=== PATIENT | female | born 1945 ===

== ENCOUNTER 2025-04-30 10:06 | Day surgery (SDC) | payer OTHER, MEDICARE ==
[~2025-04-30] VITALS: Ht 160 cm; Wt 70.0 kg
[2025-04-30] MEDS ORDERED: CeFAZolin Sodium 2,000 MG VIAL ONE (10:32)
[2025-04-30] MEDS ORDERED: Acetaminophen650 M1 (10:36)
[2025-04-30] MEDS ORDERED: AMLODIPINE-ATO1 EA14 PO (10:36)
[2025-04-30] MEDS ORDERED: APAP500 MG PO (10:43)
[2025-04-30] MEDS ORDERED: MELATONIN5 M1 PO (10:43)
[2025-04-30] MEDS ORDERED: LORA10ER PO (10:44)
[2025-04-30] MEDS ORDERED: LOPE2C (10:44)
[2025-04-30] MEDS ORDERED: OMEP20ER PO (11:01)
[2025-04-30] MEDS ORDERED: Midazolam HCl 1MG / ML 2ML Vial ONE (11:19)
--- NOTE | 2025-04-30 11:37 | NUR ---
04/30/25 1137 Debra Whittington PT HAS SKIN ABRASION ON OPERATIVE FOREARM FROM WHEN SHE FELL AND BROKE HER WRIST. DR MILLAN AWARE. OK TO PROCEED. ABRASION DRESSED W/ XEROFORM, 4X4, & TEGADERM AT END OF CASE.
[2025-04-30] MEDS ORDERED: Lidocaine HCl 2% 10 ML SDA ONE (11:43)
[2025-04-30 12:13] VITALS: BP 100/58
--- NOTE | 2025-04-30 13:41 | NUR ---
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
== END 2025-04-30 12:56 | disposition home or self-care (01) ==
LOC: ORSCSDS 10:06
PROVIDERS: Orthopaedic Surgery
PROC: 0PSQ04Z Reposition Left Metacarpal with Internal Fixation Device, Open Approach (ICD-10-PCS; principal; 2025-04-30 11:30)
DX: S62.337A Displaced fracture of neck of fifth metacarpal bone, left hand, initial encounter for closed fracture (principal); W01.0XXA Fall on same level from slipping, tripping and stumbling without subsequent striking against object, initial encounter; W18.31XA Fall on same level due to stepping on an object, initial encounter; M19.042 Primary osteoarthritis, left hand; K21.9 Gastro-esophageal reflux disease without esophagitis; G47.33 Obstructive sleep apnea (adult) (pediatric); I10 Essential (primary) hypertension; E78.00 Pure hypercholesterolemia, unspecified; F17.220 Nicotine dependence, chewing tobacco, uncomplicated
CPT/HCPCS: C1713; C1776; C1889; J0690; J2003; J2250; J2704